=== PATIENT | male | born 1985 | race Caucasian/White ===

== ENCOUNTER 2021-12-28 10:22 | Outpatient (CLI) | payer OTHER ==
[~2021-12-28] VITALS: Ht 188 cm; Wt 93.3 kg
[2021-12-28] MEDS ORDERED: ZYRTEC 10MG10 MG PO (10:33)
[2021-12-28] MEDS ORDERED: TOPROL XL 25MG25 MG PO (10:34)
[2021-12-28 10:49] VITALS: BP 97/64; PULSE 81; TEMP 98.3
[2021-12-28] MEDS ORDERED: ASPIRIN E.C. 8181 MG PO (12:21)
[2021-12-28 12:50] VITALS: BP 102/61; PULSE 79
--- NOTE | 2021-12-28 12:50 | NUR ---
DC instructions reviewed with pt, he expresses undertsanding. Dressing over loop insertion site is clean, dry and intact. He is steady on feet. Pt is escorted to elevator with belongings.
== END 2021-12-28 12:50 | disposition home or self-care (01) ==
LOC: COL.CAR 10:22
DX: I48.91 Unspecified atrial fibrillation (principal)
CPT/HCPCS: 27886; C1764